=== PATIENT | female | born 1950 | race Caucasian/White ===

== ENCOUNTER 2016-05-20 18:05 | Emergency (ER) | payer MEDICARE ==
[2016-05-20 18:12] VITALS: BMI 25.8
--- NOTE | 2016-05-20 18:48 | EDPRACDOC ---
- General Information Chief Complaint: Abdominal Pain Stated Complaint: ABD PAIN X 1 HOUR Information Source: Patient Mode Of Arrival: Car Home Medications: Home Medications Ciprofloxacin HCl [Cipro] 500 mg PO BID #20 tab 05/20/16 Esomeprazole Mag Trihydrate [Nexium] 20 mg PO DAILY 05/20/16 Multivitamin [One Daily Essential] 1 tab PO DAILY 05/20/16 Promethazine [Phenergan] 25 mg VT Q6H PRN #12 supp 05/20/16 Allergies/Adverse Reactions: Allergies Allergy/AdvReac Type Severity Reaction Status Date / Time Beta-Blockers Allergy Unknown Verified 05/20/16 19:52 (Beta-Adrenergic Bloc butorphanol [From Stadol] Allergy Unknown Verified 05/20/16 19:52 eletriptan [From Relpax] Allergy Unknown Verified 05/20/16 19:52 hydromorphone [From Dilaudid] Allergy Unknown Verified 05/20/16 19:52 metoclopramide [From Reglan] Allergy Unknown Verified 05/20/16 19:52 prochlorperazine Allergy Unknown Verified 05/20/16 19:52 [From Compazine] sumatriptan [From Imitrex] Allergy Unknown Verified 05/20/16 19:52 topiramate [From Topamax] Allergy Unknown Verified 05/20/16 19:52 - History of Present Illness Onset: 2 HRS HPI: pt traveling back home to [place] from [place] c/o sudden N/D and epigastric pain x 2 hrs. Diarrhea x 7, no vomiting. Denies fever, cp. sob, cough, sore throat, changes in urine. Med hx = HDL, acid reflux, previous episodes of gallbladder pain but was never removed, breast CA 10 yrs ago. Surgical hx = hysterectomy, bladder tacking. Pain Location: Reports: Epigastric, RUQ Pain Context: Reports: Spontaneous Pain Severity: Severe Pain Quality: Reports: Cramping Pain Radiation: Reports: No Radiation Adult Abdominal History: Denies: Abdominal Surgery Female Abdominal History: Reports: Abdominal Surgery (hysterectomy) Modifying Factors: improves with: Nothing Female Associated Signs & Symptoms: Reports: Nausea, Vomiting, Diarrhea Oral Intake: Decreased Urinary Output: Decreased ED Past Medical History - History Reviewed Yes Nurses notes reviewed and agree except as marked - Patient Medical History Systemic History: Reports: Cancer (LT BREAST) EDM Review of Systems - Review of Systems ROS Negative Except as Marked: Yes All systems reviewed and were negative except as marked Gastrointestinal: Diarrhea, Nausea, Pain, Vomiting - Physical Exam Constitutional: Alert, Distress Oriented to: Time, Person, Place Last recorded Vital Signs: Last Vital Signs Temp 99.8 F 05/21/16 00:42 Pulse 92 05/21/16 00:42 Resp 20 05/21/16 00:42 BP 152/74 05/21/16 00:42 Pulse Ox 94 05/21/16 00:42 Oxygen Pulse Oxygen Saturation 94 O2 Device Room Air Oxygen Flow Rate Fraction of Inspired Oxygen ( FIO2) - HEENT Head: Normal Eye Exam: negative: Conjunctival Injection, Scleral Icterus Oropharynx: negative: Drooling TMJ: Normal Nose: No Symptoms Reported Neck: Normal - Respiratory/Cardiovascular Respiratory: Normal - CTA Cardiovascular: Normal - GI Auscultation: Normal Palpation: Normal Tenderness: Moderate, RUQ, Epigastric Samuel's Sign: Positive - Musculoskeletal Back: Normal Extremities: Normal - Integumentary Skin: Normal - Neurologic Mood Description: Normal Thought: Coherent - Results 05/20/16 23:13 05/20/16 20:05 WBC Cancelled 05/20/16 23:13 RBC Cancelled 05/20/16 23:13 Hgb Cancelled 05/20/16 23:13 Hct Cancelled 05/20/16 23:13 MCV Cancelled 05/20/16 23:13 MCH Cancelled 05/20/16 23:13 MCHC Cancelled 05/20/16 23:13 RDW Cancelled 05/20/16 23:13 Plt Count Cancelled 05/20/16 23:13 MPV Cancelled 05/20/16 23:13 Neut % (Auto) Cancelled 05/20/16 23:13 Lymph % (Auto) Cancelled 05/20/16 23:13 [place] % (Auto) Cancelled 05/20/16 23:13 Eos % (Auto) Cancelled 05/20/16 23:13 Baso % (Auto) Cancelled 05/20/16 23:13 Absolute Neuts (auto) Cancelled 05/20/16 23:13 Absolute Lymphs (auto) Cancelled 05/20/16 23:13 Seg Neuts % (Manual) Cancelled 05/20/16 23:13 Band Neutrophils % Cancelled 05/20/16 23:13 Lymphocytes % (Manual) Cancelled 05/20/16 23:13 Monocytes % (Manual) Cancelled 05/20/16 23:13 Eosinophils % (Manual) Cancelled 05/20/16 23:13 Basophils % (Manual) Cancelled 05/20/16 23:13 Metamyelocytes % Cancelled 05/20/16 23:13 Myelocytes % Cancelled 05/20/16 23:13 Promyelocytes % Cancelled 05/20/16 23:13 Absolute Neutrophils Cancelled 05/20/16 23:13 Absolute Lymphocytes Cancelled 05/20/16 23:13 Nucl RBC Rel Cnt (Man) Cancelled 05/20/16 23:13 Vacuolated Neuts Cancelled 05/20/16 23:13 Atypical Lymphocytes Cancelled 05/20/16 23:13 Blast Cells Cancelled 05/20/16 23:13 Toxic Granulation Cancelled 05/20/16 23:13 Dohle Bodies Cancelled 05/20/16 23:13 Platelet Estimate Cancelled 05/20/16 23:13 RBC Morphology Cancelled 05/20/16 23:13 Sodium 145 mEq/L (137-146) 05/20/16 20:05 Potassium 3.8 mEq/L (3.5-5.1) 05/20/16 20:05 Chloride 111 mEq/L (98-107) H 05/20/16 20:05 Carbon Dioxide 20 mMOL/L (22-33) L 05/20/16 20:05 Anion Gap 18 mEq/L (8-16) H 05/20/16 20:05 BUN 19 MG/DL (7-17) H 05/20/16 20:05 Creatinine 0.60 MG/DL (0.52-1.04) 05/20/16 20:05 Estimated GFR (MDRD) > 60 mL/min (>=60) 05/20/16 20:05 Glucose 99 MG/DL (70-99) 05/20/16 20:05 Calculated Osmolality 281 MOs/Kg (270-290) 05/20/16 20:05 Calcium 9.2 MG/DL (8.4-10.2) 05/20/16 20:05 Total Bilirubin 0.7 MG/DL (0.2-1.3) 05/20/16 20:05 AST 24 IU/L (14-36) 05/20/16 20:05 ALT 30 IU/L (9-52) 05/20/16 20:05 Alkaline Phosphatase 70 IU/L (55-165) 05/20/16 20:05 Total Protein 7.0 G/DL (6.3-8.2) 05/20/16 20:05 Albumin 4.3 G/DL (3.5-5.0) 05/20/16 20:05 Lipase 30 U/L (23-300) 05/20/16 20:05 Urine Color Dk yellow 05/20/16 19:19 Urine Clarity Cldy 05/20/16 19:19 Urine pH 5.0 (5.0-8.0) 05/20/16 19:19 Ur Specific [place] 1.025 (1.003-1.035) 05/20/16 19:19 Urine Protein 2+ (NEG/TRACE) H 05/20/16 19:19 Urine Glucose (UA) Neg (NEGATIVE) 05/20/16 19:19 Urine Ketones Neg (NEGATIVE) 05/20/16 19:19 Urine Occult Blood 2+ (NEG/TRACE) H 05/20/16 19:19 Urine Nitrite Pos (NEGATIVE) H 05/20/16 19:19 Urine Bilirubin Neg (NEGATIVE) 05/20/16 19:19 Urine Urobilinogen <2.0 MG/DL (0-1) 05/20/16 19:19 Ur Leukocyte Esterase 2+ (NEGATIVE) H 05/20/16 19:19 Urine RBC 10-20 (0-5) H 05/20/16 19:19 Urine WBC Tntc (0-5) H 05/20/16 19:19 Ur Epithelial Cells 2+ 05/20/16 19:19 Urine Bacteria 2+ (NEG/FEW) H 05/20/16 19:19 Urine Mucus Mod (NEG/OCC) H 05/20/16 19:19 Lab Results 05/20/16 05/20/16 05/20/16 23:13 20:05 19:19 WBC Cancelled RBC Cancelled Hgb Cancelled Hct Cancelled MCV Cancelled MCH Cancelled MCHC Cancelled RDW Cancelled Plt Count Cancelled MPV Cancelled Neut % (Auto) Cancelled Lymph % (Auto) Cancelled [place] % (Auto) Cancelled Eos % (Auto) Cancelled Baso % (Auto) Cancelled Absolute Neuts (auto) Cancelled Absolute Lymphs (auto) Cancelled Seg Neuts % (Manual) Cancelled Band Neutrophils % Cancelled Lymphocytes % (Manual) Cancelled Monocytes % (Manual) Cancelled Eosinophils % (Manual) Cancelled Basophils % (Manual) Cancelled Metamyelocytes % Cancelled Myelocytes % Cancelled Promyelocytes % Cancelled Absolute Neutrophils Cancelled Absolute Lymphocytes Cancelled Nucl RBC Rel Cnt (Man) Cancelled Vacuolated Neuts Cancelled Atypical Lymphocytes Cancelled Blast Cells Cancelled Toxic Granulation Cancelled Dohle Bodies Cancelled Platelet Estimate Cancelled RBC Morphology Cancelled Sodium 145 Potassium 3.8 Chloride 111 H Carbon Dioxide 20 L Anion Gap 18 H BUN 19 H Creatinine 0.60 Estimated GFR (MDRD) > 60 Glucose 99 Calculated Osmolality 281 Calcium 9.2 Total Bilirubin 0.7 AST 24 ALT 30 Alkaline Phosphatase 70 Total Protein 7.0 Albumin 4.3 Lipase 30 Urine Color Dk yellow Urine Clarity Cldy Urine pH 5.0 Ur Specific [place] 1.025 Urine Protein 2+ H Urine Glucose (UA) Neg Urine Ketones Neg Urine Occult Blood 2+ H Urine Nitrite Pos H Urine Bilirubin Neg Urine Urobilinogen <2.0 Ur Leukocyte Esterase 2+ H Urine RBC 10-20 H Urine WBC Tntc H Ur Epithelial Cells 2+ Urine Bacteria 2+ H Urine Mucus Mod H - Diagnostic Imaging Abdomen Image interpreted by: Radiologist 05/20/16 22:24 EXAM: CT ABDOMEN AND PELVIS WITH CONTRAST TECHNIQUE: Multidetector CT imaging of the abdomen and pelvis was performed using the standard protocol following bolus administration of intravenous contrast. CONTRAST: 80 cc Isovue 370 COMPARISON: None. FINDINGS: Lower chest: There is an unusual type 3 hiatal hernia in which the gastroesophageal junction is above the diaphragm, but a portion of the stomach herniated at the into the chest re-herniates down into the abdomen. This is shown on image 43 series 601. There is a large air-fluid level within the hiatal hernia and within the part of the hiatal hernia which Re herniates back into the abdomen. Overall the hiatal hernia is moderate to large in size and is associated with passive atelectasis in the left lower lobe. Hepatobiliary: Unremarkable Pancreas: Unremarkable Spleen: Unremarkable Adrenals/Urinary Tract: Right extrarenal pelvis with mild to moderate right hydroureter which tapers distally without a visible stone. Adrenal glands normal. Stomach/Bowel: Borderline dilated proximal duodenum. Primarily fluid filled loops of small and large bowel, with air-fluid levels in the distal large bowel compatible with diarrheal process. Mildly accentuated mucosal enhancement in the sigmoid colon. Vascular/Lymphatic: Aortoiliac atherosclerotic vascular disease. There is considerable luminal narrowing of the proximal SMA as shown on image 46 of series 601 probably from atheromatous narrowing especially along the left side of the vessel. The BRENT appears patent. Reproductive: Uterus absent. Ovaries not well seen. Other: Scattered injection granulomata along the buttocks. Musculoskeletal: Lumbar degenerative disc disease most notably at L5-S1. IMPRESSION: 1. Air-fluid levels in the distal colon with accentuated mucosal enhancement in this vicinity suggesting diarrheal disease. This is most likely to be infectious. 2. Unusual large type 3 hiatal hernia. The gastroesophageal junction is above the diaphragm, but a portion of the stomach which is herniated into the chest Re-herniates down into the abdomen. 3. Right hydroureter, without a stone or discrete cause identified. I cannot exclude a low-grade distal ureteral stricture, but no obstruction to contrast excretion is identified. 4. Atheromatous narrowing of the proximal SMA. Electronically Signed By: Duncan Taylor M.D. On: 05/20/2016 22:16 - Additional Information Pt states she has had phenergan before without issue. Zofran is not controlling nausea. Decision Time to Discharge: 22:35 - Departure Disposition: Home Condition: Stable Final Diagnosis: Nausea vomiting and diarrhea UTI (urinary tract infection) Qualifiers: Urinary tract infection type: site unspecified Hematuria presence: without hematuria Qualified Code(s): N39.0 - Urinary tract infection, site not specified Instructions: Acute Abdominal Pain (ED), Urinary Tract Infection in Women (ED) , Dysuria, Acute Nausea and Vomiting (ED) Education/Counseling Given To: Patient, Family Member Education/Counseling Given Regarding: Diagnosis, Treatment, Prognosis, Follow Up Referrals: None,No Provider [Primary Care Provider] - One Week Prescriptions: Ciprofloxacin HCl [Cipro] 500 mg PO BID #20 tab Promethazine [Phenergan] 25 mg VT Q6H PRN #12 supp PRN Reason: Nausea/Vomiting Additional Instructions: Follow up with your primary care provider. Take cipro for urinary tract infection. Take phenergan for nausea. Return to ED for any new or worsening symptoms.
[2016-05-20] MEDS ORDERED: ONDANSETRON HCL 4 MG/2 ML VIAL IV ONE (19:25)
[2016-05-20] MEDS ORDERED: MORPHINE 4 MG/ML INJECTION IV ONE ×2 (19:25→22:27)
[2016-05-20 19:37] LABS: LEUKOCYTES/URINE 2+ (NEGATIVE); URINE OCCULT BLOOD 2+ (NEG/TRACE); WBC/URINE TNTC (0-5)
[2016-05-20 19:41] LABS: NITRITE/URINE POS (NEGATIVE)
[2016-05-20] MEDS ORDERED: NS 1,000 ML IV ONE (19:57)
[2016-05-20] MEDS ORDERED: Pharmacy Review for Metformin - IV Contrast Given SCH (20:00)
[2016-05-20] MEDS ORDERED: PROMETHAZINE 25 MG/ML VIAL IV ONE ×2 (20:41→22:28)
[2016-05-20 20:47] LABS: BLOOD UREA NITROGEN 19 MG/DL (7-17); CALCIUM 9.2 MG/DL (8.4-10.2); CALCULATED OSMOLALITY 281 MOs/Kg (270-290); CHLORIDE 111 mEq/L (98-107); GLUCOSE 99 MG/DL (70-99); SODIUM LEVEL 145 mEq/L (137-146)
--- NOTE | 2016-05-20 22:19 | DIRPT ---
CLINICAL DATA: Mid abdominal pain for 1 hour. Nausea and diarrhea. EXAM: CT ABDOMEN AND PELVIS WITH CONTRAST TECHNIQUE: Multidetector CT imaging of the abdomen and pelvis was performed using the standard protocol following bolus administration of intravenous contrast. CONTRAST: 80 cc Isovue 370 COMPARISON: None. FINDINGS: Lower chest: There is an unusual type 3 hiatal hernia in which the gastroesophageal junction is above the diaphragm, but a portion of the stomach herniated at the into the chest re-herniates down into the abdomen. This is shown on image 43 series 601. There is a large air-fluid level within the hiatal hernia and within the part of the hiatal hernia which Re herniates back into the abdomen. Overall the hiatal hernia is moderate to large in size and is associated with passive atelectasis in the left lower lobe. Hepatobiliary: Unremarkable Pancreas: Unremarkable Spleen: Unremarkable Adrenals/Urinary Tract: Right extrarenal pelvis with mild to moderate right hydroureter which tapers distally without a visible stone. Adrenal glands normal. Stomach/Bowel: Borderline dilated proximal duodenum. Primarily fluid filled loops of small and large bowel, with air-fluid levels in the distal large bowel compatible with diarrheal process. Mildly accentuated mucosal enhancement in the sigmoid colon. Vascular/Lymphatic: Aortoiliac atherosclerotic vascular disease. There is considerable luminal narrowing of the proximal SMA as shown on image 46 of series 601 probably from atheromatous narrowing especially along the left side of the vessel. The BRENT appears patent. Reproductive: Uterus absent. Ovaries not well seen. Other: Scattered injection granulomata along the buttocks. Musculoskeletal: Lumbar degenerative disc disease most notably at L5-S1. IMPRESSION: 1. Air-fluid levels in the distal colon with accentuated mucosal enhancement in this vicinity suggesting diarrheal disease. This is most likely to be infectious. 2. Unusual large type 3 hiatal hernia. The gastroesophageal junction is above the diaphragm, but a portion of the stomach which is herniated into the chest Re-herniates down into the abdomen. 3. Right hydroureter, without a stone or discrete cause identified. I cannot exclude a low-grade distal ureteral stricture, but no obstruction to contrast excretion is identified. 4. Atheromatous narrowing of the proximal SMA. Electronically Signed By: Duncan Taylor M.D. On: 05/20/2016 22:16
[2016-05-20] MEDS ORDERED: CIPROFLOXACIN HCL 500 MG TAB PO ONE (22:29)
[2016-05-21 00:43] VITALS: BP 152/74; PULSE 92; TEMP 99.8
== END 2016-05-21 00:40 | disposition home or self-care (01) ==
LOC: ED 18:05
DX: R11.2 Nausea with vomiting, unspecified (principal); R19.7 Diarrhea, unspecified; N39.0 Urinary tract infection, site not specified
CPT/HCPCS: 36415; 74177; 80053; 81001; 83690; 96361; 96374; 96375; 96376; 99284; A9270; A9698; J2270; J2405; J2550; J3490